=== PATIENT | male | born 1950 ===

== ENCOUNTER 2024-05-12 10:15 | Inpatient (IN) | payer OTHER ==
[~2024-05-12] VITALS: Ht 172.7 cm; Wt 96.2 kg
[2024-05-12] MEDS ORDERED: ZESTRIL2.5 MG PO (14:53)
[2024-05-12] MEDS ORDERED: ELIQUIS5 MG PO (14:53)
[2024-05-12] MEDS ORDERED: SERTRALINE HCL25 MG PO (14:54)
[2024-05-12] MEDS ORDERED: GRALISE600 MG PO (14:54)
[2024-05-12] MEDS ORDERED: SIMVASTATIN20 MG PO (14:54)
[2024-05-12 14:55] VITALS: BP 130/70; BP 132/69
[2024-05-14] MEDS ORDERED: ONDANSETRON HCL 2 MG/ML VIAL IV PRN (13:45)
[2024-05-14] MEDS ORDERED: OxyCODONE HCL 5 MG TABLET (ROXICODONE) PO PRN (13:45)
[2024-05-14] MEDS ORDERED: DEXTROSE 50 % IN WATER 0.5 G/ML DISP.SYRIN IV PRN (13:45)
[2024-05-14] MEDS ORDERED: 0.9 % SODIUM CHLORIDE 1,000 ML IV SCH (13:45)
[2024-05-14] MEDS ORDERED: MORPHINE SULFATE 4 MG/ML CARTRIDGE IV PRN (13:45)
[2024-05-14] MEDS ORDERED: ACETAMINOPHEN 500 MG GEL..CAP PO SCH (14:00)
[2024-05-14] MEDS ORDERED: GABAPENTIN800 M1 (15:37)
[2024-05-14] MEDS ORDERED: BUPIVACAINE HCL 30 ML VIAL IJ ONE (16:30)
[2024-05-14] MEDS ORDERED: METRONIDAZOLE/SODIUM CHLORIDE 500 MG/100 ML PIGGYBACK IV ONE (16:30)
[2024-05-14] MEDS ORDERED: CEFTRIAXONE SODIUM 2,000 MG VIAL IV ONE (16:30)
[2024-05-14] MEDS ORDERED: POVIDONE-IODINE 118 ML BOTT TOP ONE (16:45)
[2024-05-14] MEDS ORDERED: LIDOCAINE HCL 1%/EPINEPHRINE 20ML VIAL IJ ONE (16:45)
[2024-05-14] MEDS ORDERED: HYOSCYAMINE SULFATE 0.125 MG TAB.SUBL SL SCH (17:00)
[2024-05-14] MEDS ORDERED: GABAPENTIN 300 MG CAPSULE PO SCH (17:00)
[2024-05-14] MEDS ORDERED: POLYETHYLENE GLYCOL 3350 17 GM BLIST.PACK PO SCH (17:00)
[2024-05-14] MEDS ORDERED: METRONIDAZOLE/SODIUM CHLORIDE 500 MG/100 ML PIGGYBACK IV SCH (17:00)
[2024-05-14] MEDS ORDERED: MORPHINE SULFATE 2 MG/ML CARTRIDGE IV ONE (18:00)
[2024-05-14 18:59] LABS: HEMATOCRIT 34.8 % (39.0-48.0); MEAN CORPUSCULAR HGB CONC 34.5 g/dl (32.0-36.0); PLATELET COUNT 122 K/uL (150-450); RED BLOOD COUNT 3.74 M/uL (4.00-6.00); RED CELL DISTRIBUTION WIDTH 15.9 % (11.5-14.5)
[2024-05-14 19:16] LABS: ALBUMIN 3.3 gm/dL (3.4-5.0); CALCIUM 8.6 mg/dL (8.5-10.1); CREATININE SERUM 0.87 mg/dL (0.70-1.30); GFR 85.78; PHOSPHOROUS 4.3 mg/dL (2.5-4.9); POTASSIUM 4.51 mEq/L (3.5-5.1)
[2024-05-14 20:39] VITALS: BP 132/69; O2SAT 98
[2024-05-14] MEDS ORDERED: FAMOTIDINE/PF 20 MG/2 ML VIAL IV PUSH SCH (21:00)
[2024-05-14] MEDS ORDERED: CELECOXIB 200 MG CAPSULE PO SCH (21:00)
[2024-05-14 23:40] VITALS: BP 121/74; O2SAT 93
[2024-05-15 08:03] LABS: HEMOGLOBIN 12.2 g/dL (13-16.00); MEAN CELL VOLUME 92.2 fL (80.0-100.00); MEAN CORPUSCULAR HEMOGLOBIN 31.3 pg (27.00-32.0); MEAN CORPUSCULAR HGB CONC 33.9 g/dl (32.0-36.0); RED BLOOD COUNT 3.91 M/uL (4.00-6.00); RED CELL DISTRIBUTION WIDTH 15.7 % (11.5-14.5)
[2024-05-15 08:10] LABS: PLATELET COUNT 115 K/uL (150-450)
[2024-05-15 08:31] VITALS: BP 122/73; O2SAT 95
[2024-05-15] MEDS ORDERED: LISINOPRIL 2.5 MG TABLET PO SCH (09:00)
[2024-05-15 09:01] LABS: ALBUMIN 3.3 gm/dL (3.4-5.0); CALCIUM 8.8 mg/dL (8.5-10.1); CREATININE SERUM 0.94 mg/dL (0.70-1.30); GFR 78.45; PHOSPHOROUS 3.4 mg/dL (2.5-4.9); POTASSIUM 4.67 mEq/L (3.5-5.1)
[2024-05-15 16:23] VITALS: BP 103/64; O2SAT 98
[2024-05-15] MEDS ORDERED: ENOXAPARIN SODIUM 40 MG/0.4 ML SYRINGE SUBCUTANEO SCH (17:00)
[2024-05-16 00:37] VITALS: BP 113/63; O2SAT 100
[2024-05-16 07:45] LABS: HEMATOCRIT 35.3 % (39.0-48.0); HEMOGLOBIN 12.1 g/dL (13-16.00); MEAN CELL VOLUME 92.3 fL (80.0-100.00); MEAN CORPUSCULAR HEMOGLOBIN 31.6 pg (27.00-32.0); MEAN CORPUSCULAR HGB CONC 34.2 g/dl (32.0-36.0); PLATELET COUNT 95 K/uL (150-450); RED BLOOD COUNT 3.82 M/uL (4.00-6.00); RED CELL DISTRIBUTION WIDTH 16.1 % (11.5-14.5)
[2024-05-16] MEDS ORDERED: ENOXAPARIN SODIUM 40 MG/0.4 ML SYRINGE SUBCUTANEO SCH (09:00)
[2024-05-16 10:32] VITALS: BP 136/89; O2SAT 96
[2024-05-16 16:00] VITALS: BP 118/77; O2SAT 98
[2024-05-16] MEDS ORDERED: APIXABAN 5 MG TABLET PO SCH (17:00)
[2024-05-17 00:11] VITALS: BP 127/67; O2SAT 97
[2024-05-17 09:59] VITALS: BP 131/80; O2SAT 98
[2024-05-17] MEDS ORDERED: HYOSCYAMINE0.125 M1 SL (10:58)
[2024-05-17] MEDS ORDERED: PEPCID AC20 MG PO (10:58)
[2024-05-17] MEDS ORDERED: TRAM1TAB98 PO (10:58)
== END 2024-05-17 14:55 | disposition home or self-care (01) | DRG 331 ==
LOC: SURG 05-14 09:00 → O/R 05-14 09:00 → SURH 05-14 11:15 → SURG 05-14 17:57
PROVIDERS: ADMIT Surgery; ATTEND Surgery
PROC: 0DBP4ZZ Excision of Rectum, Percutaneous Endoscopic Approach (ICD-10-PCS; 2024-05-14)
PROC: 07BC4ZX Excision of Pelvis Lymphatic, Percutaneous Endoscopic Approach, Diagnostic (ICD-10-PCS; 2024-05-14)
PROC: 0DBN4ZZ Excision of Sigmoid Colon, Percutaneous Endoscopic Approach (ICD-10-PCS; principal; 2024-05-14 11:15)
DX: C20 Malignant neoplasm of rectum (principal); R59.0 Localized enlarged lymph nodes